=== PATIENT | male | born 1940 | race Caucasian/White ===

== ENCOUNTER → 2017-11-05 07:18 | Outpatient (CLI) | payer MEDICARE, SELFPAY ==
[2017-11-05 09:30] LABS: Alanine Aminotransferase 34 IU/L (21-72); Albumin 3.8 g/dL (3.5-5.0); Albumin Globulin Ratio 1.1 (1.0-2.8); Alkaline Phosphatase 91 U/L (38-126); Aspartate Aminotransferase 27 IU/L (17-59); Bilirubin Total 0.9 mg/dL (0.2-1.3); Blood Urea Nitrogen 27 mg/dL (9-20); Calcium 9.4 mg/dL (8.4-10.2); Carbon Dioxide 25 mmol/L (22-32); Chloride 108 mmol/L (98-107); Cholesterol 204 mg/dL (140-199); Estimated Glomerular Filt Rate > 60.0 mL/min (>60); Globulin 3.5 g/dL (1.7-4.1); Glucose 108 mg/dL (80-110); HDL Cholesterol 34 mg/dL (40-60); HEMOLYSIS < 15 (0-50); LDL Cholesterol Calculated 130 mg/dL (<100); Potassium 4.1 mmol/L (3.4-5.1); Sodium 143 mmol/L (137-145); Total Protein 7.3 g/dL (6.3-8.2); Triglycerides 200 mg/dL (35-150)
== END ==
PROVIDERS: PCP Internal Medicine; Visit Provider Internal Medicine
DX: E78.5 Hyperlipidemia, unspecified (principal); I10 Essential (primary) hypertension
CPT/HCPCS: 36415; 80053; 80061

== ENCOUNTER → 2018-04-22 08:15 | Outpatient (CLI) | payer MEDICARE, SELFPAY ==
[2018-04-22 09:40] LABS: Cholesterol 204 mg/dL (140-199); HDL Cholesterol 35 mg/dL (40-60); LDL Cholesterol Calculated 119 mg/dL (<100); Triglycerides 249 mg/dL (35-150)
== END ==
PROVIDERS: PCP Internal Medicine; Visit Provider Internal Medicine
DX: E78.5 Hyperlipidemia, unspecified (principal)
CPT/HCPCS: 36415; 80061

== ENCOUNTER → 2018-06-27 07:26 | Outpatient (CLI) | payer MEDICARE, SELFPAY ==
[2018-06-27 07:59] LABS: Alanine Aminotransferase 44 IU/L (21-72); Albumin 3.9 g/dL (3.5-5.0); Albumin Globulin Ratio 1.1 (1.0-2.8); Alkaline Phosphatase 95 U/L (38-126); Aspartate Aminotransferase 31 IU/L (17-59); BUN Creatinine Ratio 32.2 (6-22); Bilirubin Total 0.8 mg/dL (0.2-1.3); Blood Urea Nitrogen 29 mg/dL (9-20); Calcium 9.6 mg/dL (8.4-10.2); Carbon Dioxide 24 mmol/L (22-32); Chloride 109 mmol/L (98-107); Cholesterol 129 mg/dL (140-199); Estimated Glomerular Filt Rate > 60.0 mL/min (>60); Globulin 3.6 g/dL (1.7-4.1); Glucose 108 mg/dL (80-110); HDL Cholesterol 37 mg/dL (40-60); HEMOLYSIS < 15 (0-50); LDL Cholesterol Calculated 62 mg/dL (<100); Potassium 4.3 mmol/L (3.4-5.1); Sodium 142 mmol/L (137-145); Total Protein 7.5 g/dL (6.3-8.2); Triglycerides 150 mg/dL (35-150)
== END ==
PROVIDERS: PCP Internal Medicine; Visit Provider Internal Medicine
DX: E78.5 Hyperlipidemia, unspecified (principal)
CPT/HCPCS: 36415; 80053; 80061

== ENCOUNTER → 2018-12-27 07:23 | Outpatient (CLI) | payer MEDICARE, SELFPAY ==
[2018-12-27 08:28] LABS: Alanine Aminotransferase 44 IU/L (21-72); Albumin 3.8 g/dL (3.5-5.0); Albumin Globulin Ratio 1.1 (1.0-2.8); Alkaline Phosphatase 100 U/L (38-126); Aspartate Aminotransferase 31 IU/L (17-59); Blood Urea Nitrogen 27 mg/dL (9-20); Calcium 9.9 mg/dL (8.4-10.2); Carbon Dioxide 29 mmol/L (22-32); Chloride 105 mmol/L (98-107); Cholesterol 117 mg/dL (140-199); Estimated Glomerular Filt Rate > 60.0 mL/min (>60); Globulin 3.4 g/dL (1.7-4.1); Glucose 101 mg/dL (80-110); HDL Cholesterol 35 mg/dL (40-60); HEMOLYSIS < 15 (0-50); LDL Cholesterol Calculated 51 mg/dL (<100); Potassium 4.7 mmol/L (3.4-5.1); Sodium 140 mmol/L (137-145); Total Protein 7.2 g/dL (6.3-8.2); Triglycerides 153 mg/dL (35-150)
== END ==
PROVIDERS: PCP Internal Medicine; Visit Provider Internal Medicine
DX: I10 Essential (primary) hypertension (principal); E78.5 Hyperlipidemia, unspecified
CPT/HCPCS: 36415; 80053; 80061

== ENCOUNTER → 2019-12-03 15:28 | Outpatient (ROUT) | payer MEDICARE, SELFPAY ==
[2019-12-03 15:44] LABS: Aspartate Aminotransferase 39 IU/L (17-59); BUN Creatinine Ratio 25.6 (6-22); Blood Urea Nitrogen 21 mg/dL (9-20); Calcium 10.2 mg/dL (8.4-10.2); Carbon Dioxide 25 mmol/L (22-32); Chloride 109 mmol/L (98-107); Cholesterol 108 mg/dL (140-199); Estimated Glomerular Filt Rate > 60.0 mL/min (>60); Glucose 82 mg/dL (80-110); HDL Cholesterol 39 mg/dL (40-60); HEMOLYSIS < 15 (0-50); LDL Cholesterol Calculated 44 mg/dL (<100); Potassium 4.6 mmol/L (3.4-5.1); Sodium 140 mmol/L (137-145); Triglycerides 124 mg/dL (35-150)
[2019-12-03 16:13] LABS: Prostate Specific Antigen 2.76 ng/mL (0.10-4.00)
== END ==
PROVIDERS: PCP Internal Medicine; Visit Provider Internal Medicine
DX: I10 Essential (primary) hypertension (principal); E78.2 Mixed hyperlipidemia; N40.1 Benign prostatic hyperplasia with lower urinary tract symptoms
CPT/HCPCS: 80048; 80061; 84153; 84450

== ENCOUNTER → 2019-12-26 11:14 | Outpatient (CLI) | payer MEDICARE, SELFPAY ==
[2019-12-26 12:05] LABS: BUN Creatinine Ratio 27.1 (6-22); Blood Urea Nitrogen 26 mg/dL (9-20); Estimated Glomerular Filt Rate > 60.0 mL/min (>60)
== END ==
PROVIDERS: PCP Internal Medicine; Referring Provider Internal Medicine; Visit Provider Internal Medicine
DX: I71.4 Abdominal aortic aneurysm, without rupture (principal)
CPT/HCPCS: 36415; 82565; 84520

== ENCOUNTER → 2019-12-30 09:38 | Outpatient (CLI) | payer MEDICARE, SELFPAY ==
--- NOTE | 2019-12-30 10:28 | DI.CT.S_ITS ---
PROCEDURE: CT ABDOMEN PELVIS W CON INDICATIONS: Abdominal aortic aneurysm, without rupture TECHNIQUE: After the administration of intravenous contrast, 5 mm thick images acquired from the diaphragm to the symphysis pubis after a 10-minute delay. 2 mm thick coronal and sagittal reformats were then performed of the kidneys and ureters. For radiation dose reduction, the following was used: automated exposure control, adjustment of mA and/or kV according to patient size. COMPARISON: None. FINDINGS: Image quality: Excellent. Lung bases: Lung bases are clear. Heart size is normal. Coronary artery calcifications are present. Urinary system: Both kidneys are normal in size and enhancement. No evidence of urinary obstruction. Involving the anterior bladder wall, there is irregularity and possible mural thickening however this could be small decompressed bladder diverticula, technically nonspecific. Overall this area measures approximately 2.8 x 1.1 cm Prostate enlarged Solid organs: Liver is normal in size and enhancement. Gallbladder negative . Biliary system is non dilated. Pancreas enhances normally. Spleen is normal in size and enhancement. No adrenal nodules. Possible trace hiatal hernia. No free fluid or air. Appendix is not clearly identified however no suspicious pericecal inflammatory changes are seen. Colonic diverticulosis is seen without evidence of acute complication. Nodes and vessels: No retroperitoneal or mesenteric adenopathy by size criteria. Aorta and inferior vena cava are normal in size. Scattered vascular calcifications seen in the aorta. Abdominal wall: No ventral hernias. Pelvis: No pathologic free pelvic fluid. No inguinal hernias or adenopathy. Bones: No vertebral body compression fracture. Spondylytic changes and facet arthropathy. IMPRESSION: No definite abdominal aortic aneurysm. Tortuous appearance of the distal aorta measuring up to 2.0 cm in diameter. Irregularity of the anterior bladder wall, and possible mural thickening. Cannot exclude bladder neoplasm and recommend clinical correlation and if necessary further assessment with dedicated cystoscopy. Please see further description above. Enlarged prostate. Additional chronic and incidental findings as above. Dictated by: Christopher Flores M.D. on 12/30/2019 at 11:19 Approved by: Christopher Flores M.D. on 12/30/2019 at 11:25
== END ==
PROVIDERS: PCP Internal Medicine; Referring Provider Internal Medicine; Visit Provider Internal Medicine
DX: I71.4 Abdominal aortic aneurysm, without rupture (principal); I25.10 Atherosclerotic heart disease of native coronary artery without angina pectoris; N40.0 Benign prostatic hyperplasia without lower urinary tract symptoms; K57.90 Diverticulosis of intestine, part unspecified, without perforation or abscess without bleeding
CPT/HCPCS: 74177; Q9967

== ENCOUNTER → 2020-08-31 11:05 | Outpatient (CLI) | payer MEDICARE, SELFPAY ==
--- NOTE | 2020-08-31 | DI.MRI.S_ITS ---
PROCEDURE: MR BRAIN (IAC) WWO CON INDICATIONS: UNSPECIFIED HEARING LOSS TECHNIQUE: Noncontrast sagittal T1 spin echo, axial FLAIR, axial gradient echo, axial diffusion and ADC through the brain. Axial thin-slice 3D CISS, coronal TruFISP, axial T1 spin echo with fat saturation through the internal auditory canals. After the administration of contrast, thin slice axial and coronal T1 spin echo with fat saturation through the internal auditory canals, and axial T1 spin echo with fat saturation through the brain. COMPARISON: None. FINDINGS: Image quality: Excellent. The ventricular system and cortical sulci demonstrate atrophy, consistent for the patient's stated age. There are areas of increased T2/FLAIR signal intensity within the periventricular and subcortical white matter. There is no acute intra-or extra axial fluid collection. No acute hemorrhage, mass lesion or midline shift. Brainstem is unremarkable. Visualized cranial nerves demonstrate no areas of abnormal signal, mass lesion or enhancement. No cerebellopontine angle masses. There are no areas of restricted diffusion. Globes are symmetrical. Sinuses are aerated. Osseous structures are intact. IMPRESSION: 1. No acute intracranial process. 2. Moderate atrophy and chronic microvascular ischemic changes. 3. Visualized cranial nerves demonstrate no abnormal signal, mass or enhancement. No cerebellopontine angle masses. Dictated by: Hui Henry M.D. on 08/31/2020 at 14:25 Approved by: Hui Henry M.D. on 08/31/2020 at 14:27
== END ==
PROVIDERS: PCP Internal Medicine; Referring Provider Otolaryngology; Visit Provider Otolaryngology
DX: H90.5 Unspecified sensorineural hearing loss (principal)
CPT/HCPCS: 70553; A9579

== ENCOUNTER → 2021-09-14 10:44 | Outpatient (CLI) | payer MEDICARE, SELFPAY ==
[2021-09-14 11:43] LABS: Hematocrit 42.2 % (41-53); Hemoglobin 14.4 g/dL (13.5-17.5); Mean Corpuscular HGB Conc 34.1 % (30-36); Mean Corpuscular Hemoglobin 32.6 PG (26-34); Mean Corpuscular Volume 95.7 fL (80-100); Platelet Count 161 X10^3/uL (150-400); Red Blood Cell Count 4.41 X10^6/uL (4.5-5.9); Red Cell Distribution Width 13.1 % (11.6-14.8); White Blood Cell Count 5.5 X10^3/uL (4.5-11.0)
[2021-09-14 12:09] LABS: Alanine Aminotransferase 38 IU/L (<50); Albumin Globulin Ratio 1.1 (1.0-2.8); Alkaline Phosphatase 103 U/L (38-126); Aspartate Aminotransferase 35 IU/L (17-59); Bilirubin Total 0.8 mg/dL (0.2-1.3); Blood Urea Nitrogen 26 mg/dL (9-20); Carbon Dioxide 27 mmol/L (22-32); Chloride 109 mmol/L (98-107); Cholesterol 146 mg/dL (140-199); Estimated Glomerular Filt Rate > 60 mL/min (>60); Globulin 3.7 g/dL (1.7-4.1); Glucose 86 mg/dL (80-110); HDL Cholesterol 42 mg/dL (40-60); HEMOLYSIS < 15 (0-50); LDL Cholesterol Calculated 73 mg/dL (<100); Potassium 4.5 mmol/L (3.4-5.1); Sodium 142 mmol/L (137-145); Total Protein 7.7 g/dL (6.3-8.2); Triglycerides 154 mg/dL (35-150)
[2021-09-14 12:36] LABS: Prostate Specific Antigen 3.95 ng/mL (0.10-4.00)
[2021-09-14 12:37] LABS: TSH w/ Reflex to FT4 2.33 uIU/mL (0.47-4.68)
== END ==
PROVIDERS: PCP Internal Medicine; Referring Provider Internal Medicine; Visit Provider Internal Medicine
DX: E78.2 Mixed hyperlipidemia (principal); N40.0 Benign prostatic hyperplasia without lower urinary tract symptoms; I10 Essential (primary) hypertension
CPT/HCPCS: 36415; 80053; 80061; 84153; 84443; 85027

== ENCOUNTER → 2022-09-20 07:17 | Outpatient (CLI) | payer MEDICARE, SELFPAY ==
[2022-09-20 08:03] LABS: Add Manual Diff / Slide Review NO; Basophils Absolute Auto 0 /uL (0-100); Basophils Percent Auto 0.7 % (0-2); Eosinophils Absolute Auto 100 /uL (0-450); Eosinophils Percent Auto 2.6 % (2-4); Hematocrit 40.8 % (41-53); Hemoglobin 14.1 g/dL (13.5-17.5); Lymphocytes Absolute Auto 2200 /uL (1100-4500); Lymphocytes Percent Auto 39.2 % (25-40); Mean Corpuscular HGB Conc 34.6 % (30-36); Mean Corpuscular Volume 95.4 fL (80-100); Monocytes Absolute Auto 700 /uL (0-900); Monocytes Percent Auto 12.6 % (3-14); Neutrophils Absolute Auto 2500 /uL (1500-7000); Neutrophils Percent Auto 44.9 % (50-75); Platelet Count 182 X10^3/uL (150-400); Red Blood Cell Count 4.28 X10^6/uL (4.5-5.9); Red Cell Distribution Width 13.7 % (11.6-14.8); White Blood Cell Count 5.5 X10^3/uL (4.5-11.0)
[2022-09-20 09:17] LABS: Creatinine Urine Random 168.7 mg/dL
[2022-09-20 09:25] LABS: Microalbumi Creatinin Ratio Ur 16.5 ug/mg CR (<30); Microalbumin Urine Random 2.8 mg/dL (0-1.6)
[2022-09-20 09:57] LABS: Alanine Aminotransferase 38 IU/L (<50); Albumin 3.6 g/dL (3.5-5.0); Albumin Globulin Ratio 1.1 (1.0-2.8); Alkaline Phosphatase 122 U/L (38-126); Aspartate Aminotransferase 31 IU/L (17-59); BUN Creatinine Ratio 27.1 (6-22); Bilirubin Total 0.8 mg/dL (0.2-1.3); Blood Urea Nitrogen 26 mg/dL (9-20); Calcium 9.3 mg/dL (8.4-10.2); Carbon Dioxide 25 mmol/L (22-32); Chloride 108 mmol/L (98-107); Cholesterol 120 mg/dL (140-199); Estimated Glomerular Filt Rate > 60 mL/min (>60); Globulin 3.3 g/dL (1.7-4.1); Glucose 117 mg/dL (80-110); HDL Cholesterol 41 mg/dL (40-60); HEMOLYSIS < 15 (0-50); LDL Cholesterol Calculated 59 mg/dL (<100); Potassium 4.2 mmol/L (3.4-5.1); Sodium 141 mmol/L (137-145); Total Protein 6.9 g/dL (6.3-8.2); Triglycerides 98 mg/dL (35-150)
== END ==
PROVIDERS: PCP Internal Medicine; Referring Provider Internal Medicine; Visit Provider Internal Medicine
DX: I10 Essential (primary) hypertension (principal); E66.01 Morbid (severe) obesity due to excess calories; E78.2 Mixed hyperlipidemia; Z68.38 Body mass index [BMI] 38.0-38.9, adult
CPT/HCPCS: 36415; 80053; 80061; 82043; 82570; 85025

== ENCOUNTER → 2022-10-05 15:31 | Outpatient (CLI) | payer MEDICARE, SELFPAY | PROVIDERS: PCP Internal Medicine; Referring Provider Internal Medicine; Visit Provider Internal Medicine | DX: N40.0 Benign prostatic hyperplasia without lower urinary tract symptoms (principal); Z80.42 Family history of malignant neoplasm of prostate | CPT/HCPCS: 36415; 84153 ==

== ENCOUNTER → 2023-04-28 11:09 | Outpatient (CLI) | payer MEDICARE, SELFPAY | PROVIDERS: PCP Internal Medicine; Visit Provider Registered Nurse | DX: R35.0 Frequency of micturition (principal) | CPT/HCPCS: 87086 ==

== ENCOUNTER → 2023-10-10 06:42 | Outpatient (CLI) | payer MEDICARE, SELFPAY ==
[2023-10-10 08:16] LABS: Aspartate Aminotransferase 32 IU/L (17-59); BUN Creatinine Ratio 28.3 (6-22); Blood Urea Nitrogen 30 mg/dL (9-20); Calcium 9.4 mg/dL (8.4-10.2); Carbon Dioxide 27 mmol/L (22-32); Chloride 112 mmol/L (98-107); Cholesterol 119 mg/dL (140-199); Estimated Glomerular Filt Rate > 60 mL/min (>60); Glucose 108 mg/dL (80-110); HDL Cholesterol 43 mg/dL (40-60); HEMOLYSIS < 15 (0-50); LDL Cholesterol Calculated 56 mg/dL (<100); Potassium 4.5 mmol/L (3.4-5.1); Sodium 142 mmol/L (137-145); Triglycerides 99 mg/dL (35-150)
[2023-10-10 08:44] LABS: Prostate Specific Antigen 3.94 ng/mL (0.10-4.00)
== END ==
PROVIDERS: PCP Internal Medicine; Referring Provider Internal Medicine; Visit Provider Internal Medicine
DX: E78.2 Mixed hyperlipidemia (principal); N40.0 Benign prostatic hyperplasia without lower urinary tract symptoms; I10 Essential (primary) hypertension
CPT/HCPCS: 36415; 80048; 80061; 84153; 84450

== ENCOUNTER → 2023-12-19 09:14 | Outpatient (CLI) | payer MEDICARE, SELFPAY ==
[2023-12-19 11:26] LABS: Hematocrit 40.2 % (41-53); Hemoglobin 13.8 g/dL (13.5-17.5); Mean Corpuscular HGB Conc 34.3 % (30-36); Mean Corpuscular Hemoglobin 33.2 PG (26-34); Mean Corpuscular Volume 96.7 fL (80-100); Platelet Count 177 X10^3/uL (150-400); Red Blood Cell Count 4.15 X10^6/uL (4.5-5.9); Red Cell Distribution Width 13.6 % (11.6-14.8); White Blood Cell Count 6.3 X10^3/uL (4.5-11.0)
[2023-12-19 12:13] LABS: TSH w/ Reflex to FT4 1.66 uIU/mL (0.47-4.68)
[2023-12-19 12:32] LABS: Vitamin B12 494 pg/mL (239-931)
== END ==
PROVIDERS: PCP Internal Medicine; Referring Provider Internal Medicine; Visit Provider Internal Medicine
DX: G31.84 Mild cognitive impairment of uncertain or unknown etiology (principal); E53.8 Deficiency of other specified B group vitamins; R94.6 Abnormal results of thyroid function studies
CPT/HCPCS: 36415; 82607; 84443; 85027

== ENCOUNTER → 2023-12-20 06:38 | Outpatient (CLI) | payer MEDICARE, SELFPAY ==
--- NOTE | 2023-12-20 06:38 | DI.CT.S_ITS ---
PROCEDURE: CT HEAD/BRAIN WO CON INDICATIONS: dementia/cognitive impairment TECHNIQUE: Noncontrast 4.5 mm thick angled axial sections acquired from the foramen magnum to the vertex, with coronal and sagittal reformats. For radiation dose reduction, the following was used: automated exposure control, adjustment of mA and/or kV according to patient size. COMPARISON: None. FINDINGS: Image quality: Diagnostic. CSF spaces: Basal cisterns are patent. No extra-axial fluid collections. The ventricles are symmetric in size and shape. Brain: No intracranial bleeds or masses. There is cerebral volume loss for age, with resultant ventricular and sulcal prominence. There are periventricular and deep white matter chronic small vessel ischemic changes. There is intracranial internal carotid artery atherosclerosis. Skull and face: Calvarium and visualized facial bones appear intact, without suspicious lesions. Sinuses: Visualized sinuses and mastoids are clear. IMPRESSION: Age-related global volume loss and chronic microvascular ischemic changes. No acute intracranial pathology. Dictated by: Bartolome Garcia M.D. on 12/20/2023 at 10:13 Approved by: Bartolome Garcia M.D. on 12/20/2023 at 10:15
== END ==
PROVIDERS: PCP Internal Medicine; Referring Provider Internal Medicine; Visit Provider Internal Medicine
DX: I65.29 Occlusion and stenosis of unspecified carotid artery; G31.84 Mild cognitive impairment of uncertain or unknown etiology; I67.9 Cerebrovascular disease, unspecified
CPT/HCPCS: 70450

== ENCOUNTER → 2024-08-11 14:54 | Outpatient (CLI) | payer MEDICARE, SELFPAY | PROVIDERS: PCP Internal Medicine; Visit Provider Urology | DX: R35.0 Frequency of micturition (principal); R39.15 Urgency of urination | CPT/HCPCS: 87086 ==

== ENCOUNTER → 2024-08-19 09:55 | Day surgery (SDC) | payer MEDICARE, SELFPAY ==
[2024-08-08 09:24] VITALS: BMI 35.9
[2024-08-19] MEDS: LACTATED RINGERS 1,000 ML 21 ML IV (10:12)
[2024-08-19 10:18] VITALS: BMI 35.9
--- NOTE | 2024-08-19 10:23 | EKG_ITS ---
[facility] [address] [place] [address] Test Date: 2024-08-19 Pat Name: Quoc Medina Department: [facility] Room: Gender: Male Coverer: YANNA : 1940 Requested By: Order Number: [id number] Reading MD: Aleks Pereira Measurements Intervals [place] Rate: 114 P: ME: QRS: 59 QRSD: 92 T: -72 QT: 324 QTc: 446 Interpretive Statements Atrial fibrillation with rapid ventricular response with premature ventricular or aberrantly conducted complexes Nonspecific ST and T wave abnormality Electronically Signed On 08-25-2024 18:54:08 PDT by Aleks Pereira
[2024-08-19 10:34] VITALS: BP 181/104; PULSE 86; RESP 14; TEMP 36.6; O2SAT 97
[2024-08-19] MEDS: ACETAMINOPHEN 325 MG TABLET 975 MG PO (10:55)
--- NOTE | 2024-08-19 11:51 | SUR.PREOP ---
Case cancelled per Dr. Henderson and Dr. Ashby due to new onset afib with RVR without cardiac history. Apt made with manager social work 08/20 @ 9am. Pt and notified.
== END | disposition home or self-care (01) ==
PROVIDERS: PCP Internal Medicine; Referring Provider Internal Medicine; Visit Provider Urology
DX: Z53.09 Procedure and treatment not carried out because of other contraindication (principal)
CPT/HCPCS: 93005; J1100; J2405; J2704; J3010

== ENCOUNTER → 2024-08-20 09:57 | Outpatient (CLI) | payer MEDICARE, SELFPAY ==
[2024-08-20 10:44] LABS: Hematocrit 38.4 % (41-53); Hemoglobin 13.1 g/dL (13.5-17.5); Platelet Count 191 X10^3/uL (150-400); Red Blood Cell Count 3.96 X10^6/uL (4.5-5.9); Red Cell Distribution Width 13.2 % (11.6-14.8); White Blood Cell Count 6.1 X10^3/uL (4.5-11.0)
[2024-08-20 11:10] LABS: Alanine Aminotransferase 43 IU/L (<50); Albumin 3.9 g/dL (3.5-5.0); Albumin Globulin Ratio 1.3 (1.0-2.8); Alkaline Phosphatase 109 U/L (38-126); Aspartate Aminotransferase 42 IU/L (17-59); BUN Creatinine Ratio 23.7 (6-22); Bilirubin Total 1.1 mg/dL (0.2-1.3); Blood Urea Nitrogen 27 mg/dL (9-20); Calcium 10.1 mg/dL (8.4-10.2); Carbon Dioxide 25 mmol/L (22-32); Chloride 107 mmol/L (98-107); Estimated Glomerular Filt Rate > 60 mL/min (>60); Globulin 3.1 g/dL (1.7-4.1); Glucose 111 mg/dL (80-110); HEMOLYSIS < 15 (0-50); Potassium 4.4 mmol/L (3.4-5.1); Sodium 140 mmol/L (137-145)
[2024-08-20 11:40] LABS: TSH w/ Reflex to FT4 1.31 uIU/mL (0.47-4.68)
== END ==
PROVIDERS: PCP Internal Medicine; Referring Provider Internal Medicine; Visit Provider Internal Medicine
DX: I48.91 Unspecified atrial fibrillation (principal); I10 Essential (primary) hypertension
CPT/HCPCS: 36415; 80053; 84443; 85027

== ENCOUNTER → 2024-09-09 09:15 | Outpatient (CLI) | payer MEDICARE, SELFPAY ==
--- NOTE | 2024-09-09 09:16 | DI.ECHO.S_ITS ---
[place] [facility]+ [facility] : : [address] : : [place] : : [id number] : : Phone: [phone] Echocardiogram Report + + :Name: LEE GUERRA Study Date: 09/09/2024 Height: 73 in : :[facility] ReadingLocation: Weight: 266 lb : : Gender: Male BSA: 2.4 m2 : :: 1940 Age: 84 yrs BP: 169/95 mmHg: :Reason For Study: NEW ATRIAL FIBRILLATION : :Ordering Physician: LILA, : :SAI Performed By: Juliano Chin : :Referring: SAI SHARP : + + Interpretation Summary The patient was in atrial fibrillation with heart rates between 70-107 bpm during the exam. The left ventricle is normal in size. Left ventricular ejection fraction is estimated to be 50 +/- 5%. The right ventricle is normal in size and function. The left atrium is severely dilated. Mild MR There is mild aortic regurgitation. There is mild tricuspid regurgitation. Right ventricular systolic pressure is estimated to be 29 mmHg plus the clinically estimated CVP which cannot be estimated on this exam. Procedure: A two-dimensional transthoracic echocardiogram with color flow and Doppler was performed. The study quality was technically good. Comparison is made with the echocardiogram of 04/26/2010. The patient was in atrial fibrillation with heart rates between 70-107 bpm during the exam. Left Ventricle: The left ventricle is normal in size. Left ventricular wall thickness is mild-moderately increased. There is no thrombus. Left ventricular ejection fraction is estimated to be 50 +/- 5%. There is basal inferior wall hypokinesis. Diastolic function could not be accurately assessed due to atrial fibrillation. Right Ventricle: The right ventricle is normal in size and function. Atria: The left atrium is severely dilated. The right atrium is moderately dilated. There is no Doppler evidence for an interatrial shunt. Mitral Valve: There is mild mitral annular calcification. The mitral valve leaflets appear mildly thickened, but open well. There is mild mitral regurgitation. Aortic Valve: The aortic valve is trileaflet. Calcification on LCC. There is no aortic valve stenosis. There is mild aortic regurgitation. Tricuspid Valve: The tricuspid valve is normal. There is mild tricuspid regurgitation. Right ventricular systolic pressure is estimated to be 29 mmHg plus the clinically estimated CVP which cannot be estimated on this exam. Pulmonic Valve: The pulmonic valve is not well visualized. There is trace pulmonic regurgitation. Great Vessels: The aortic root is normal size. There is aortic root sclerosis/calcification. The ascending aorta is mildly enlarged. The pulmonary artery is normal size. The inferior vena cava was not visualized. Pericardium/ Pleura There is no pericardial effusion. MMode/2D Measurements & Calculations LVIDd: 4.4 cm LVOT diam: 2.7 cm LVIDs: 3.4 cm Ao root diam: 4.1 cm FS: 21.7 % asc Aorta Diam: 3.9 cm EPSS: 0.54 cm IVSd: 1.5 cm LVPWd: 1.4 cm LV awan. diameter/BSA (cm/m^2): 1.8 LV sys. diameter/BSA (cm/m^2): 1.4 LA A2 area: 36.0 cm2 RA long axis: 6.3 cm LA A4 area: 38.8 cm2 RA area: 24.1 cm2 LA length (vol): 8.0 cm RA vol: 78.1 ml LA vol: 148.5 ml RA : 32.2 ml/m2 LA vol index: 61.1 ml/m2 RVD1 (basal): 3.6 cm RVD2 (mid): 2.1 cm TAPSE: 2.3 cm Doppler Measurements & Calculations Ao V2 max: 103.7 cm/sec LVOT Max Brian: 84.4 cm/sec Ao V2 mean: 79.0 cm/sec LV V1 max P.9 mmHg Ao max P.3 mmHg LV V1 VTI: 17.3 cm Ao mean P.7 mmHg ANGELICA(I,D): 6.3 cm2 Ao V2 VTI: 15.9 cm ANGELICA(V,D): 4.7 cm2 sev ratio: 1.1 ANGELICA indexed to BSA (cm^2/m^2): 2.6 MV E max brian: 103.7 cm/sec TR max brian: 268.5 cm/sec MV A max brian: 21.3 cm/sec TR max P.8 mmHg MV E/A: 4.9 PA V2 max: 93.0 cm/sec Med Peak E' Brian: 4.3 cm/sec PA V2 mean: 68.1 cm/sec E/E' med: 23.9 PA mean P.0 mmHg Lat Peak E' Brian: 5.3 cm/sec PA pr(Accel): 46.5 mmHg E/E' lat: 19.6 E/e' average: 21.7 MV dec time: 0.20 sec SVLVOT): 100.7 ml Reading Physician:05:47 PM
== END ==
LOC: ECHO 09:16
PROVIDERS: PCP Internal Medicine; Referring Provider Internal Medicine; Visit Provider Internal Medicine
DX: I08.3 Combined rheumatic disorders of mitral, aortic and tricuspid valves (principal); I48.91 Unspecified atrial fibrillation; I10 Essential (primary) hypertension; I77.89 Other specified disorders of arteries and arterioles
CPT/HCPCS: 93306

== ENCOUNTER → 2024-12-15 09:22 | Outpatient (CLI) | payer MEDICARE, SELFPAY ==
[2024-12-15 10:52] LABS: Hematocrit 39.4 % (41-53); Hemoglobin 13.2 g/dL (13.5-17.5); Mean Corpuscular HGB Conc 33.6 % (30-36); Mean Corpuscular Hemoglobin 32.9 PG (26-34); Mean Corpuscular Volume 97.8 fL (80-100); Platelet Count 179 X10^3/uL (150-400)
[2024-12-15 11:21] LABS: Alanine Aminotransferase 34 IU/L (<50); Albumin 3.8 g/dL (3.5-5.0); Albumin Globulin Ratio 1.2 (1.0-2.8); Alkaline Phosphatase 102 U/L (38-126); Blood Urea Nitrogen 27 mg/dL (9-20); Calcium 10.0 mg/dL (8.4-10.2); Carbon Dioxide 23 mmol/L (22-32); Chloride 109 mmol/L (98-107); Cholesterol 116 mg/dL (140-199); Estimated Glomerular Filt Rate > 60 mL/min (>60); Globulin 3.2 g/dL (1.7-4.1); Glucose 171 mg/dL (70-99); HDL Cholesterol 39 mg/dL (40-60); HEMOLYSIS < 15 (0-50); Potassium 4.2 mmol/L (3.4-5.1); Sodium 140 mmol/L (137-145); Total Protein 7.0 g/dL (6.3-8.2); Triglycerides 129 mg/dL (35-150)
[2024-12-15 11:48] LABS: Prostate Specific Antigen 4.50 ng/mL (0.10-4.00)
== END ==
PROVIDERS: PCP Internal Medicine; Referring Provider Internal Medicine; Visit Provider Internal Medicine
DX: E78.2 Mixed hyperlipidemia (principal); N40.0 Benign prostatic hyperplasia without lower urinary tract symptoms; I48.91 Unspecified atrial fibrillation
CPT/HCPCS: 36415; 80053; 80061; 84153; 85027

== ENCOUNTER → 2025-02-17 08:43 | Outpatient (CLI) | payer MEDICARE, SELFPAY ==
[2025-02-17 10:37] LABS: Blood Urea Nitrogen 31 mg/dL (9-20); Calcium 10.2 mg/dL (8.4-10.2); Carbon Dioxide 22 mmol/L (22-32); Chloride 108 mmol/L (98-107); Estimated Glomerular Filt Rate > 60 mL/min (>60); Glucose 253 mg/dL (70-99); HEMOLYSIS < 15 (0-50); Potassium 4.7 mmol/L (3.4-5.1); Sodium 140 mmol/L (137-145)
[2025-02-17 11:01] LABS: Prostate Specific Antigen 3.86 ng/mL (0.10-4.00)
[2025-02-17 16:10] LABS: Hemoglobin A1C% w Est Avg Glu 6.3 % (4.0-6.0)
== END ==
PROVIDERS: PCP Internal Medicine; Referring Provider Internal Medicine; Visit Provider Internal Medicine
DX: R73.01 Impaired fasting glucose (principal); N40.0 Benign prostatic hyperplasia without lower urinary tract symptoms
CPT/HCPCS: 36415; 80048; 83036; 84153

== ENCOUNTER → 2025-02-18 12:32 | Outpatient (CLI) | payer MEDICARE, SELFPAY ==
--- NOTE | 2025-02-18 12:33 | DI.ECHO.S_ITS ---
[place] +---------+ [facility] : : [address] : : [place] : : [id number] : : Phone: [phone] Echocardiogram Report + + :Name: LEE GUERRA Study Date: 02/18/2025 Height: 72 in : :[facility] ReadingLocation: Weight: 260 lb : : Gender: Male BSA: 2.4 m2 : :: 1940 Age: 84 yrs BP: 168/107 mmHg: :Reason For Study: ATRIAL FIBRILLATION : :Ordering Physician: LILA, : :SAI Performed By: Juliano Chin : :Referring: SAI SHARP : + + Interpretation Summary The left ventricle is normal in size. Left ventricular systolic function is mildly reduced. The ejection fraction is estimated to be 45-50%. There has been no significant change since the previous exam. Basal inferior wall hypokinesis Compared to the prior exam, the left ventricular wall motion has not changed. Diastolic function could not be accurately assessed due to atrial fibrillation. The right ventricle is normal in size and function. The right ventricular systolic pressure is estimated to be at least 45 mmHg based on an estimated right atrial pressure of 8 mm Hg. The left atrium is severely dilated. There is mild to moderate mitral regurgitation. MR has slightly increased since prior study. The aortic valve is mildly calcified. There is mild aortic regurgitation. There is no other significant valvular heart disease. The aortic root is mildly dilated. The ascending aorta is mildly enlarged. Procedure: A two-dimensional transthoracic echocardiogram with color flow and Doppler was performed. The study quality was technically good. Comparison is made with the echocardiogram of 09/09/2024. The patient was in atrial fibrillation with heart rates between 79-106 bpm during the exam. Left Ventricle: The left ventricle is normal in size. Left ventricular wall thickness is mild-moderately increased. There is no ventricular septal defect visualized. Left ventricular systolic function is mildly reduced. The ejection fraction is estimated to be 45-50%. There has been no significant change since the previous exam. Basal inferior wall hypokinesis. Compared to the prior exam, the left ventricular wall motion has not changed. Diastolic function could not be accurately assessed due to atrial fibrillation. Right Ventricle: The right ventricle is normal in size and function. Atria: The left atrium is severely dilated. The right atrium is borderline dilated. There is no Doppler evidence for an interatrial shunt. Mitral Valve: The mitral valve leaflets appear normal. There is no evidence of stenosis, fluttering, or prolapse. There is mild mitral annular calcification. There is mild to moderate mitral regurgitation. Aortic Valve: The aortic valve is trileaflet. The aortic valve is mildly calcified. There is mild aortic regurgitation. Tricuspid Valve: The tricuspid valve leaflets are thin and pliable. There is mild tricuspid regurgitation. The right ventricular systolic pressure is estimated to be at least 45 mmHg based on an estimated right atrial pressure of 8 mm Hg. Pulmonic Valve: The pulmonic valve is not well seen, but is grossly normal. There is trace pulmonic regurgitation. There is no other significant valvular heart disease. Great Vessels: The aortic root is mildly dilated. The ascending aorta is mildly enlarged. The pulmonary artery is not well visualized, but is probably normal size. The IVC is dilated (diameter is greater than 2.1 cm) yet it collapses greater than 50% with a sniff. This suggests a right atrial pressure of 8 mm Hg. Pericardium/ Pleura There is no pericardial effusion. There is no pleural effusion. MMode/2D Measurements & Calculations LVIDd: 4.5 cm LVOT diam: 2.6 cm LVIDs: 3.3 cm Ao root diam: 4.1 cm FS: 26.7 % asc Aorta Diam: 4.0 cm EPSS: 0.89 cm IVSd: 1.5 cm LVPWd: 1.3 cm LV awan. diameter/BSA (cm/m^2): 1.9 LV sys. diameter/BSA (cm/m^2): 1.4 LA A2 area: 38.0 cm2 RA long axis: 6.8 cm LA A4 area: 40.9 cm2 RA area: 20.7 cm2 LA length (vol): 8.3 cm RA vol: 53.3 ml LA vol: 159.7 ml RA : 22.4 ml/m2 LA vol index: 67.0 ml/m2 IVC diam: 2.4 cm RVD1 (basal): 3.7 cm RVD2 (mid): 2.8 cm TAPSE: 2.0 cm Doppler Measurements & Calculations Ao V2 max: 78.9 cm/sec LVOT Max Brian: 71.3 cm/sec Ao V2 mean: 59.7 cm/sec LV V1 max P.0 mmHg Ao max P.5 mmHg LV V1 VTI: 11.7 cm Ao mean P.5 mmHg ANGELICA(I,D): 4.7 cm2 Ao V2 VTI: 13.4 cm ANGELICA(V,D): 4.9 cm2 sev ratio: 0.87 ANGELICA indexed to BSA (cm^2/m^2): 2.0 AI P1/2t: 388.3 msec AI dec slope: 267.3 cm/sec2 MV E max brian: 98.2 cm/sec TR max brian: 303.9 cm/sec MV A max brian: 19.0 cm/sec TR max P.0 mmHg MV E/A: 5.2 PA V2 max: 55.6 cm/sec Med Peak E' Brian: 5.0 cm/sec PA V2 mean: 39.6 cm/sec E/E' med: 19.8 PA mean P.69 mmHg Lat Peak E' Brian: 6.3 cm/sec PA pr(Accel): 39.6 mmHg E/E' lat: 15.6 E/e' average: 17.7 MV dec time: 0.13 sec MR ERO: 0.09 cm2 MR PISA: 1.3 cm2 SV(LVOT): 63.0 ml MR flow rate: 48.4 cm3/sec MR PISA radius: 0.46 cm Reading Physician:06:45 PM
== END ==
PROVIDERS: PCP Internal Medicine; Referring Provider Internal Medicine; Visit Provider Internal Medicine
DX: I08.3 Combined rheumatic disorders of mitral, aortic and tricuspid valves (principal); I48.91 Unspecified atrial fibrillation; I50.22 Chronic systolic (congestive) heart failure; I77.89 Other specified disorders of arteries and arterioles; I77.810 Thoracic aortic ectasia
CPT/HCPCS: 93306

== ENCOUNTER → 2025-03-13 08:56 | Outpatient (CLI) | payer MEDICARE, SELFPAY ==
--- NOTE | 2025-03-13 09:04 | DIAB.MNT ---
Initial Diabetes Medical Nutrition Therapy Assessment Name: Quoc Medina Date: 03/13/25 Time: 9-950a Dx: Type II Diabetes Provider: Tiffany Preferred Learning Style: Reading Newly dx with T2Dm with BG of 253mg/dl and hgA1c of 6.3%. Started Jardiance 10mg. Maternal FH of DM Wants dinner ideas. Having constipation. No BM x 3-4 days. Has had weight loss of reported 12#. Trying to lose wt. Has done diets before that did not stick. On current diet x 3 weeks. Prior to this was eating larger portions, more sweets. Previously was eating white rice, potatoes, pasta. Has drastically reduced CHO in diet. States that this may not be sustainable watermaster. Diet Recall: 7am: 1/2c dry oats dry with splenda, splash milk, blue berries 12p: 1/2 sandwich on ww, salami or chicken, 1/2 fruit (apple) 6p: chicken with broccoli and dressing OR salmon, salad, and veggie (green beans or broccoli) Water: 20-24oz x 2-3 Sometimes diet juice (randy blue arce) Anthropometrics: Ht: 6' Wt: 261# 02/2025 PCP Physical Activity: Swim aerobics 2x per week Self-Monitoring Blood Glucose: None Date Pre Post Pre Post Pre Post HS Diabetes Medications: 10mg Jardiance Pertinent Labs: hgA1c: 6.3% 02/2025 glucose: 253mg/dl 02/2025 Past Medical History: (Last Updated 02/24/25 @ 08:36 by Brock Allen MD) Actinic keratoses Actinic keratosis (03/13/14) Atrial fibrillation Basal cell carcinoma (BCC) of left shoulder (06/28/16) BPH loc w/o ur obs/LUTS Chronic anticoagulation DM type 2 with diabetic dyslipidemia Essential hypertension Family history of prostate cancer in father Hearing loss (~1966) History of tobacco use Left knee pain Mild cognitive impairment Mixed hyperlipidemia Normal colonoscopy (~2009) Obesity Osteoarthritis Reduced ejection fraction concurrent with and due to chronic heart failure Secondhand smoke exposure Tinnitus (~1965) Unspecified macular degeneration (08/16/11) Nutrition Rx: Carbohydrates: Meal:45g Snack:15-30g Nutrition Diagnosis: - Inconsistent CHO intake r/t nutrition knowledge deficit aeb diet recall and pt report - Predicted inadequate fiber intake r/t change in diet to reduce BG aeb pt report of limited BM and diet recall Intervention: This participant was very receptive. Provided appropriate educational handouts. Discussed the following topics: Completed intake assessment. Discussed barriers to care. Pathophysiology of T2DM BG diagnostic criteria for T2 Plate Method, impact of macronutrients on blood sugar, meal timing, pairing macronutrients and spreading out carbohydrates for better blood glucose management Recommended servings for carbohydrates at meals and snacks Brainstormed appropriate meal plan based on food preferences Role of physical activity and following provider guidelines for safety Jardiance benefits and potential SE/precautions Heart healthy nutrition Hydration Created SMART goals for patient self-care and success. Goals: Eat protein when you eat Add 3pm snack Eat nuts (low or no Na) and fruit Swim 3x per week Hydrate 60oz+ per day Follow-up: CRISPIN CHAVEZ follow-up in 2-3 weeks Sendy Lantigua RDN, KELLEYES Certified Diabetes Care and Director Regulatory Affairs P: [phone] Thank you for this referral
== END ==
LOC: DIET 08:56
PROVIDERS: PCP Internal Medicine; Referring Provider Internal Medicine
DX: E11.9 Type 2 diabetes mellitus without complications (principal); Z71.3 Dietary counseling and surveillance; Z83.3 Family history of diabetes mellitus; Z79.84 Long term (current) use of oral hypoglycemic drugs
CPT/HCPCS: 97802

== ENCOUNTER → 2025-04-03 10:46 | Outpatient (CLI) | payer MEDICARE, SELFPAY ==
--- NOTE | 2025-04-30 13:49 | DIAB.MNTFU ---
Follow-up Diabetes Medical Nutrition Therapy Assessment Name: Quoc Medina Date: 04/03/25 Time: Dx: Type II Diabetes Newly dx with T2Dm with BG of 253mg/dl and hgA1c of 6.3%. Started Jardiance 10mg. Maternal FH of DM Improved BM with q 1-2 days vs 3-4. Endorses improved BP recently. Has questions about eating out, ie Tajik food or Welsh food. Endorses Tajik food: chicken with veggies in peanut sauce x 1 1/3c, pad tahi x 1 1/3c and rice 1/3c OR Welsh food: smoothered burrito Diet Recall: 7am: 1/2c dry oats dry with splenda, splash milk, blue berries 12p: 1/2 sandwich on ww, salami or chicken, 1/2 fruit (apple)+/- veggies 3p: nuts 6p: chicken with broccoli and dressing OR salmon, salad, and veggie (green beans or broccoli) HS: nothing or nuts Water: 16-20oz x 3 Sometimes diet juice (randy blue arce) Endorses dry feet. Needs eye appt. Anthropometrics: Ht: 6' Wt: 242# 03/2025 reported 261# 02/2025 PCP Physical Activity: Swim aerobics 3x per week Self-Monitoring Blood Glucose: None Date Pre Post Pre Post Pre Post HS Diabetes Medications: 10mg Jardiance Pertinent Labs: hgA1c: 6.3% 02/2025 glucose: 253mg/dl 02/2025 Past Medical History: (Last Updated 02/24/25 @ 08:36 by Brock Allen MD) Actinic keratoses Actinic keratosis (03/13/14) Atrial fibrillation Basal cell carcinoma (BCC) of left shoulder (06/28/16) BPH loc w/o ur obs/LUTS Chronic anticoagulation DM type 2 with diabetic dyslipidemia Essential hypertension Family history of prostate cancer in father Hearing loss (~1966) History of tobacco use Left knee pain Mild cognitive impairment Mixed hyperlipidemia Normal colonoscopy (~2009) Obesity Osteoarthritis Reduced ejection fraction concurrent with and due to chronic heart failure Secondhand smoke exposure Tinnitus (~1965) Unspecified macular degeneration (08/16/11) Nutrition Rx: Carbohydrates: Meal:45gSnack:15-30g Nutrition Diagnosis: - Predicted inadequate fiber intake r/t change in diet to reduce BG aeb pt report of limited BM and diet recall - improved - Predicted excessive CHO intake r/t nutrition knowledge deficit regarding eating out aeb pt report- new Intervention: This participant was very receptive. Provided appropriate educational handouts. Discussed the following topics: Eating out recommendations and portions Reviewed reducing DM complication risks Higher fiber CHO choices Macronutrient pairing Hydration Created SMART goals for patient self-care and success. Goals: Eat protein when you eat- met Add 3pm snack- met Eat nuts (low or no Na) and fruit- met Swim 3x per week- met Hydrate 60oz+ per day- in progress Lotion feet- new Schedule eye appt- new Choose brown rice- new keep noodles to 1c- new Pair evening snack- new Cut burrito in half- new Follow-up: CRISPIN CHAVEZ follow-up in 6 weeks Sendy Lantigua RDN, KATHY Certified Diabetes Care and Engine Tester P: [phone] Thank you for this referral
== END ==
LOC: DIET 10:46
PROVIDERS: PCP Internal Medicine; Referring Provider Internal Medicine
DX: E11.9 Type 2 diabetes mellitus without complications (principal); Z71.3 Dietary counseling and surveillance; Z79.84 Long term (current) use of oral hypoglycemic drugs; Z83.3 Family history of diabetes mellitus
CPT/HCPCS: 97803